=== PATIENT | female | born 1990 | race Asian ===

== ENCOUNTER 2022-04-16 13:59 | Outpatient (CLI) | payer BC, SELFPAY ==
[2022-04-16 15:22] LABS: Amphetamine Screen Urine Negative (Negative); Barbiturate Screen Urine Negative (Negative); Benzodiazepines Screen Urine Negative (Negative); Cannabinoid Screen Urine Negative (Negative); Cocaine Screen Urine Negative (Negative); Methadone Screen Urine Negative (Negative); Methamphetamines Screen Urine Negative (Negative); Opiate Screen Urine Negative (Negative); Oxycodone Screen Urine Negative (Negative); Phencyclidine Screen Urine Negative (Negative); Tricyclic Antidepressant Urine Negative (Negative)
== END 2022-04-16 14:00 | disposition home or self-care (01) ==
LOC: NFLDREF 14:09
PROVIDERS: Visit Provider Advanced Practice Midwife
DX: O09.30 Supervision of pregnancy with insufficient antenatal care, unspecified trimester (principal); Z3A.20 20 weeks gestation of pregnancy
CPT/HCPCS: 76805; 80306

== ENCOUNTER 2022-06-02 11:39 | Outpatient (CLI) | payer BC, SELFPAY ==
--- OUTSIDE RECORDS SUMMARY | 2022-06-02 11:42 | XMS_ITS | Clinical Summary ---
:1990 Author Organization [facility] [place] [address] Care Team Providers Name Role Phone Sophie Salvador MD Primary Care Provider Allergies No known active allergies Medications Medication Sig Dispensed Refills Start Date End Date Status FLUoxetine (PROZAC) Take 1 Capsule (10 30 Capsule 2 04/03/2021 Active 10 mg mg) by mouth every capsuleIndications: morning. Depression with anxiety Active Problems Problem Noted Date ADD (attention deficit disorder) 12/13/2012 Contraception 05/08/2012 Resolved Problems Problem Noted Date Resolved Date IUD (intrauterine device) in place 03/01/201402/13 Overview: Placed April 2013. Supervision of normal first 07/26/2011 Overview: FOB: [facility] Itchy skin at 23 weeks: bile salts della l, itching resolved GBS negative. Immunizations Name Administration Dates Next Due COVID-19 vaccine ([employer] 11/04/2020, 10/14/2020 30mcg/0.3mL) PF, MDV DTP 08/15/1997, 02/25/1993, 1992, 1992 HIB PRP-OMP (PedvaxHIB) 08/15/1997, 02/25/1993, 1992, 1992 Hepatitis B (Peds) 04/24/1993, 1992, 1992 Human Papilloma Virus Vaccine 08/18/2016, 04/23/2014, 2012, 07/30/2010 Human Papilloma Virus Vaccine, 08/18/2016 Unspecified Influenza A (H1N1), Inactivated 09/18/2009 Influenza Virus, Unspecified 08/20/2016 Influenza, IIV3 (Age 6-35 mos) 07/26/2011 Influenza, IIV3 (Age >=3 years) 06/30/2012, 07/26/2011, 07/04 Influenza, IIV4 08/20/2020, 07/23/2019, 07/13/2018, 08/20/2016 MMR 06/12/2004, 08/15/1997 Meningococcal Vaccine (Menactra) 07/30/2010 Meningococcal Vaccine (Menveo) 07/30/2010 Oral Polio Vaccine 08/15/1997, 1992, 1992 Td (Age >=7 Years) 06/12/2004 Tdap 09/13/2018, 01/17/2012 Varicella Vaccine 12/09/2008, 06/12/2004 Family History Medical History Relation Name Comments Good Health Brother 2 Good Health Father Cancer Mother stomach Relation Name Status Comments Brother 1 Alive Brother 2 Father Alive Mother 2006 Son Alive Social History Tobacco Use Types Packs/Day Years Used Date Never Smoker Smokeless Tobacco: Never Used Tobacco Cessation: Counseling Given: Yes Alcohol Use Standard Drinks/Week Comments No 0 (1 standard drink = 0.6 oz pure alcoho l) Alcohol Habits Answer Date Recorded How often do you have a drink containing alcohol? Not asked How many drinks containing alcohol do you have on a typical Not asked day when you are drinking? How often do you have six or more drinks on one occasion? 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 Respiratory Rate 16 04/01/2021 9:29 AM CDT Oxygen Saturation 99% 03/15/2019 9:31 AM CDT Inhaled Oxygen Concentration - - Weight 75.6 kg (166 lb 9.6 oz) 04/01/2021 9:29 AM CDT Height 161.3 cm (5' 3.5) 04/01/2021 9:29 AM CDT Body Mass Index 29.05 04/01/2021 9:29 AM CDT Plan of Treatment Health Maintenance Due Date Last Done Comments Hepatitis C screening for age 1007/15/2010 18-79 COVID-19 vaccine series (3 - 04/03/2021 11/04/2020, 021 Booster for Pfizer series) BMI (ht and wt on same day) for 04/01/2022 04/01/2021, 03/03 age 18+ Depression screening for age 12+ 04/03/2022 04/03/2021, Influenza for age 9-49 06/03/2022 08/20/2020, 07/23/2019, 07/13/2018, Additional history exists Pap test for age 21-65 01/15/2025 01/15/2022, 01/15/2022, 08/18/2018 ([facility] Tetanus booster 09/13/2028 09/13/2018, 01/17/2012, 06/12/2004 Tdap Completed 09/13/2018, 01/17/2012 Results Not on filefrom Last 3 Months Insurance Payer Benefit Plan / Subscriber ID Effective Dates Phone Addre ss Type Group [employer] [place] [employer] [id number] 2020-Present [address] [address] [place] [address] Laya Mckeon Motor Vehicle Self 1990 [id number] (Home) [place] [id number] 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
[2022-06-04 19:52] LABS: Rapid Plasma Reagin (RPR) Non Reactive (Non Reactive)
== END 2022-06-02 11:40 | disposition home or self-care (01) ==
LOC: NFLDREF 11:40
PROVIDERS: Visit Provider Registered Nurse
DX: Z34.80 Encounter for supervision of other normal pregnancy, unspecified trimester (principal)
CPT/HCPCS: 86592

== ENCOUNTER 2022-06-29 17:38 | Outpatient (CLI) | payer BC, SELFPAY ==
--- OUTSIDE RECORDS SUMMARY | 2022-06-29 17:40 | XMS_ITS | Clinical Summary ---
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 Respiratory Rate 16 04/01/2021 9:29 AM CDT [...] 01/15/2025 01/15/2022, 01/15/2022, 08/18/2018 ([facility] Tetanus booster 09/13/2028 09/13/2018, 01/17/2012, 06/12/2004 Tdap Completed 09/13/2018, 01/17/2012 Results Not on filefrom Last 3 Months Insurance Payer Benefit Plan / Subscriber ID Effective Dates Phone Addre ss Type Group [employer] [place] [employer]AGE [id number] 2020-Present [address] [address] [place] [address] Laya Mckeon Motor Vehicle Self 1990 [id number] (Home) [place] [id number] 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
[2022-06-29 17:46] VITALS: PULSE 96; O2SAT 98
[2022-06-29 17:51] VITALS: PULSE 95; O2SAT 98
[2022-06-29 17:54] VITALS: BP 119/74; PULSE 91
[2022-06-29 17:55] VITALS: BP 119/74; PULSE 95; RESP 14; TEMP 36.7; O2SAT 98
--- NOTE | 2022-06-29 18:33 | PC.OBNST ---
NST Note NST Note Start: 06/29/22 17:46 Freq: ONCE Status: Active Protocol: Document 06/29/22 18:21 LP (Rec: 06/29/22 18:33 LP [id number]) NST Note 4 Para (# of births) 2 EDC 08/23/22 Gestational Age In Weeks & Days 32 Weeks & 1 Days Patient Presented with Complaint(s) of Decreased movement Reactive Yes Appropriate for Gestational Age Yes CHARLES Wu, RN Date 06/29/22 Reactive Yes Appropriate for Gestational Age Yes CHARLES Holder RN Date 06/29/22 OB NST charge Yes Complete NST Note via Write Note Yes The provider's electronic signature indicates the NST is reactive/appropriate for gestational age. *Note to provider: If an addendum is required, open the patient's chart and click on the note under the Nurse/Allied Health tab.
== END 2022-06-29 18:25 | disposition home or self-care (01) ==
LOC: OB OUT 17:39 → OB 17:43
PROVIDERS: Visit Provider Obstetrics & Gynecology
DX: Z34.83 Encounter for supervision of other normal pregnancy, third trimester (principal); Z3A.32 32 weeks gestation of pregnancy
CPT/HCPCS: 59025; 99213

== ENCOUNTER 2022-08-11 11:15 | Outpatient (CLI) | payer BC, SELFPAY ==
--- OUTSIDE RECORDS SUMMARY | 2022-08-11 11:17 | XMS_ITS | Clinical Summary ---
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 Rate 16 04/01/2021 9:29 AM CDT [...] 1007/15/2010 18-79 COVID-19 vaccine series (3 - 12/30/2020 11/04/2020, 021 Booster for Pfizer series) BMI (ht and wt on same day) for 04/01/2022 04/01/2021, 03/03 age 18+ Depression screening for age 12+ 04/03/2022 04/03/2021, Influenza for age 9-49 06/03/2022 08/20/2020, 07/23/2019, 07/13/2018, Additional history exists Pap test for age 21-65 01/15/2025 01/15/2022, 01/15/2022, 08/18/2018 (Completed outside of [facility]) Tetanus booster 09/13/2028 09/13/2018, 01/17/2012, 06/12/2004 Tdap Completed 09/13/2018, 01/17/2012 Results Not on filefrom Last 3 Months Insurance Payer Benefit Plan / Subscriber ID Effective Dates Phone Addre ss Type Group [employer] [place] [employer]AGE [id number] 2020-Present [address] [address] [place] [address] Laya Mckeon Motor Vehicle Self 1990 [address] (Home) [place] [id number] 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
[2022-08-12 11:43] LABS: Strep B DNA Probe NEGATIVE (Negative)
[2022-08-14 03:06] LABS: Strep B Pen/Amox Allergy No
== END 2022-08-11 11:16 | disposition home or self-care (01) ==
LOC: NFLDREF 11:15
PROVIDERS: Visit Provider Obstetrics & Gynecology
DX: Z34.83 Encounter for supervision of other normal pregnancy, third trimester (principal); Z3A.38 38 weeks gestation of pregnancy
CPT/HCPCS: 87081; 87653

== ENCOUNTER 2022-08-23 09:45 | Inpatient (IN) | payer BC, SELFPAY ==
[2022-08-23] VITALS (7 sets, daily range): BP systolic 115–122; BP diastolic 72–80; PULSE 85–102; TEMP 36.5–36.6; O2SAT 99–100; BMI 34.0
[2022-08-23 10:57] LABS: Basophils Absolute Auto 0.05 K/uL (0.00-0.30); Basophils Percent Auto 0.5 % (0.0-3.0); Eosinophils Absolute Auto 0.07 K/uL (0.00-0.50); Eosinophils Percent Auto 0.6 % (0.0-7.0); Hematocrit 33.4 % (33.0-51.0); Hemoglobin* 10.7 gm/dL (12.0-16.0); Immature Granulocytes Abs Auto 0.06 K/uL (0.00-0.30); Immature Granulocytes Pct Auto 0.6 %; Lymphocytes Percent Auto 18.5 % (20-44); Mean Corpuscular HGB Conc 32 gm/dL (32-36); Mean Corpuscular Hemoglobin 23 pg (26-34); Mean Corpuscular Volume 71 fL (80-100); Monocytes Percent Auto 5.5 % (0.0-11.0); Neutrophils Percent Auto 74.3 % (42.0-72.0); Platelet Count* 279 K/uL (140-440); RDW Coefficient of Variation % 15.3 % (11.5-15.5); Red Blood Count 4.72 m/uL (4.00-5.20)
[2022-08-23 11:00] LABS: Slide Review Reflex No
[2022-08-23 11:02] LABS: Amphetamine Screen Urine Negative (Negative); Barbiturate Screen Urine Negative (Negative); Benzodiazepines Screen Urine Negative (Negative); Cannabinoid Screen Urine Negative (Negative); Cocaine Screen Urine Negative (Negative); Methadone Screen Urine Negative (Negative); Methamphetamines Screen Urine Negative (Negative); Opiate Screen Urine Negative (Negative); Oxycodone Screen Urine Negative (Negative); Phencyclidine Screen Urine Negative (Negative); Tricyclic Antidepressant Urine Negative (Negative)
[2022-08-23 11:50] LABS: SARS PCR* Negative SARS-CoV-2 (Negative)
--- NOTE | 2022-08-23 14:35 | W.PM.LDBA ---
Subjective History of Present Illness Time Seen by Provider: 11:00 Date Seen: 08/23/22 Narrative: Patient is being admitted to Labor and Delivery for elective induction of labor. She is a 32 year old at weeks gestation. Her full history and physical was dictated by Dr. Lazaro on 08/11/2022. Please see this for details. Patient today states to be doing well without any specific concerns or complaints, ready to start induction of labor, she was originally scheduled to come in last night for cervical ripening but due to staffing issues and the L&D being very busy she was asked to come in today in the morning. Comments: H&P done 08/11/[address] Lazaro. 1. Insufficient care, NOB then did not return until >20 weeks UDS 04/19 neg COVID: vaccinated x2 Flu: 07/2021, does want it this year TDAP:06/16/22 OB - H&P: Exam Physical Exam: Vital signs: Temp Pulse BP Pulse Ox 97.7 F 97 120/80 99 08/23/22 10:07 08/23/22 10:06 08/23/22 10:06 08/23/22 10:07 Narrative: VITAL SIGNS: As noted above. GENERAL APPEARANCE: Alert, cooperative female in no acute distress. MOOD & AFFECT: Normal. ABDOMEN: Gravid, nontender Cervix: 1 cm/50%/vertex/-3 EXTREMITIES: Nonedematous. Well perfused. Nontender. NST: 140 beats per minute/positive accelerations/negative deceleration/moderate variability/irregular uterine contractions OB - Problem Based A/P Additional Plan (1) : Status: Acute Plan Elective induction of labor at term: -Cook catheter placed, will plan to start IV oxytocin at around 3:00 p.m. per protocol GBS negative: No need for antibiotic prophylaxis Pain management: Candidate for analgesia of her choice Delivery/Labor/Induction Plan Plan: induction Induction method: Intracervical balloon catheter
[2022-08-23] MEDS: LACTATED RINGERS 1000 ML 1,000 ML 125 ML IV ×2 (15:32→22:52)
[2022-08-23] MEDS: OXYTOCIN 30 unit/500 ML in NS 30 UNIT/500 ML BAG IVPB (15:33)
[2022-08-23 21:42] LABS: Buprenorphine Screen Urine Negative (Negative)
[2022-08-24] VITALS (78 sets, daily range): BP systolic 83–143; BP diastolic 49–82; PULSE 71–108; RESP 16; TEMP 36.4–37; O2SAT 82–100
[2022-08-24] MEDS: ROPIVACAINE 0.2% 100 ml 100 ML 12 MG EPIDURAL (00:25)
[2022-08-24] MEDS: LIDOCAINE 2% (PF) 5 ML VIAL EPIDURAL (00:26)
[2022-08-24] MEDS: LACTATED RINGERS 1000 ML 1,000 ML 999 ML IV ×3 (00:26→02:37)
--- NOTE | 2022-08-24 00:32 | PM.ANBPRC ---
[facility] Medical History (Updated 08/23/22 @ 14:41 by Ilsa Snider MD) Normal delivery at term (11/29/18) Family History Mother Stomach cancer Social History Smoking Status: Never smoker Meds Home Medications and Allergies Home Medications Medication Instructions Recorded Confirmed Type cholecalciferol (vitamin D3) 25 1,000 unit PO DAILY 04/16/22 08/23/22 History mcg (1,000 unit) tablet omega 5-bqz-oke-fish oil 300 1 cap PO QDAY 04/16/22 08/23/22 History mg-1,000 mg capsule (Fish Oil) prenat.vits,wm,zyt-iyvl-lvwac 1 tab PO QDAY 04/16/22 08/23/22 History Allergies Allergy/AdvReac Type Severity Reaction Status Date / Time No Known Allergies Allergy Verified 08/23/22 21:30 Results Labs Labs: Laboratory Results - last 24 hr 08/23/22 08/23/22 08/23/22 10:10 10:10 10:41 WBC 10.80 RBC 4.72 Hgb 10.7 L Hct 33.4 MCV 71 L MCH 23 L MCHC 32 RDW Coeff of Link 15.3 Plt Count 279 Neut % (Auto) 74.3 H Lymph % (Auto) 18.5 L [place] % (Auto) 5.5 Eos % (Auto) 0.6 Baso % (Auto) 0.5 Neut # (Auto) 8.00 H Lymph # (Auto) 2.00 Freestone # (Auto) 0.60 Eos # (Auto) 0.07 Baso # (Auto) 0.05 Abs Immat Gran (auto) 0.06 Imm/Tot Granulo (auto) 0.6 Urine Opiates Screen Negative Ur Buprenorphine Scrn Negative Ur Oxycodone Screen Negative Urine Methadone Screen Negative Ur Propoxyphene Screen Negative Ur Barbiturates Screen Negative U Tricyclic Antidepress Negative Ur Phencyclidine Scrn Negative Ur Amphetamines Screen Negative U Methamphetamines Scrn Negative U Benzodiazepines Scrn Negative Urine Cocaine Screen Negative U Marijuana (THC) Screen Negative SARS-CoV-2 (PCR) Negative SARS-CoV-2 Blood Type Antibody Screen 08/23/22 10:41 WBC RBC Hgb Hct MCV MCH MCHC RDW Coeff of Link Plt Count Neut % (Auto) Lymph % (Auto) Freestone % (Auto) Eos % (Auto) Baso % (Auto) Neut # (Auto) Lymph # (Auto) Freestone # (Auto) Eos # (Auto) Baso # (Auto) Abs Immat Gran (auto) Imm/Tot Granulo (auto) Urine Opiates Screen Ur Buprenorphine Scrn Ur Oxycodone Screen Urine Methadone Screen Ur Propoxyphene Screen Ur Barbiturates Screen U Tricyclic Antidepress Ur Phencyclidine Scrn Ur Amphetamines Screen U Methamphetamines Scrn U Benzodiazepines Scrn Urine Cocaine Screen U Marijuana (THC) Screen SARS-CoV-2 (PCR) Blood Type B Positive Antibody Screen NEGATIVE Vital Signs Vital Signs: Last Vital Signs Temp 98 F 08/23/22 22:49 Pulse 102 H 08/24/22 00:29 BP 102/52 L 08/24/22 00:31 Pulse Ox 99 08/24/22 00:20 Weight: 90.083 kg Height: 162.56 cm Anesthesia Procedures Epidural Insertion Patient Location: OB Start Time: 23:55 Stop Time: 00:35 Start Date: 08/23/22 Stop Date: 08/24/22 Reason for Block: primary anesthetic Patient Position: sitting Performed By: Harlan López Preanesthetic Checklist: IV checked, risks and benefits discussed, surgical consent, monitors and equipment checked, pre-op evaluation, timeout performed and anesthesia consent Prep: chlorhexidine gluconate Monitoring: blood pressure monitoring, physician asst, continuous pulse oximetry and heart rate Approach: midline Vertebral Space: lumbar (1-5) Needle Type: Tuohy needle Injection Technique: continuous catheter (catheter) Needle gauge: 17 Needle Length (cm): 10 cm Needle Insertion Depth (cm): 5 Catheter Gauge: 19 Catheter Type: multi-orifice Catheter at skin depth (cm): 10 Test Dose Result: negative and lidocaine 1.5% with epinephrine 1 to 200,000
[2022-08-24] MEDS: PHENYLEPHRINE 100 MCG/ML SYRINGE IVP ×3 (00:36→01:24)
[2022-08-24] MEDS: ePHEDrine sulfate 5 MG/ML inj 10 MG IVP (01:32)
--- NOTE | 2022-08-24 04:49 | PM.OBPRCVD ---
Procedure Delivery date: 08/24/22 Procedure Done: Global Events: Labor Induction Intrapartal Events: Labor Induction Induction method: Intracervical balloon catheter (Followed by IV oxytocin infusion) Delivery monitor: external FHT Route of delivery: Episiotomy description: None Laceration description: Perineal - 1st Degree Delivery repair: Vicryl Estimated blood loss (mL): 50 Anesthesia type: Epidural Disposition: floor Complications: None Narrative: The patient is a 32 year-old G 4P 3013 admitted on 08/23/2022 at 40 Weeks, 0 Days gestation for elective induction of labor.? Cervical exam on admission was 1 cm/50 % effaced/-3 station with membranes intact in vertex presentation.? Contractions were every irregular minutes.? heart rate demonstrated baseline 140 bpm with moderate variability, positive accelerations, negative decelerations; a category 1 tracing.? SROM occurred at 0256 with clear fluid. ? Labor Analgesia:? Epidural ? Pitocin:? Yes ? Labor onset:? 2319 ? Complete:? 0354 ? Pushing:? 0359 ? heart tones during second stage were category 1. ? At 0418 a viable female infant delivered in vertex SAMUEL presentation over intact perineum via containing vaginal delivery.? was placed on maternal abdomen.? Cord was clamped and cut after a 30-60 second delay.? Nose and mouth were bulb suctioned.? Infant weight pending.? 8 at 1 minute and 8 at 5 minutes.? Shoulder dystocia: No.? Nuchal cord: No. ? Placenta delivered spontaneously and complete at 0428 with a 3 vessel cord. ? Mother and were stable after delivery. ? Lacerations:? 1st degree perineal, repaired with Vicryl 4-0. ? Blood loss: 50 mL. Blood loss measurement type: QBL ? Sponge and needles counts are correct. Infant Gender: Female presentation: vertex Placental Delivery Description: Spontaneous Cord Description: 3 Vessels
[2022-08-24] MEDS: DOCUSATE SODIUM 100 MG CAPSULE PO ×2 (07:19→20:40)
[2022-08-24] MEDS: IBUPROFEN 600 MG TABLET PO (07:19)
[2022-08-24] MEDS: LANOLIN CREAM 1 APPLIC TOPICAL (12:38)
[2022-08-24] MEDS: ACETAMINOPHEN 500 MG TABLET 1000 MG PO (16:42)
[2022-08-25] MEDS: IBUPROFEN 600 MG TABLET PO (01:22)
[2022-08-25] MEDS: ACETAMINOPHEN 500 MG TABLET 1000 MG PO (04:43)
[2022-08-25 04:57] VITALS: BP 121/81; PULSE 75; RESP 16; TEMP 37; O2SAT 97
[2022-08-25 06:55] LABS: Hemoglobin* 9.6 gm/dL (12.0-16.0)
--- NOTE | 2022-08-25 07:44 | P.DS_ITS ---
DS: Providers Provider Date Seen: 08/25/22 Date of admission: 08/23/22 09:45 Primary care physician: Not a Local Provider Admitting Clinician: Gloria Whitehead MD Attending Physician on discharge: Irasema [place] CNM Date of Discharge: 08/25/22 DS: Diagnosis Discharge Diagnosis (1) due to : Status: Inactive (2) Normal vaginal delivery: Status: Acute Exam Const: Vital Signs, click to edit/add: Vital Signs - 24 hr 08/24/22 08:32 08/24/22 12:39 08/24/22 15:35 Temperature 98.6 F 98 F 98.4 F Pulse Rate [Blood Pressure Cuff] 82 90 90 Respiratory Rate 16 16 16 Blood Pressure [Le ft Arm] 111/74 112/68 111/74 Pulse Oximetry 97 97 96 Oxygen Delivery Me thod Room Air Room Air Room Air 08/24/22 20:30 08/24/22 23:20 08/25/22 04:57 Temperature 98.1 F 97.9 F 98.6 F Pulse Rate [Blood Pressure Cuff] 90 95 75 Respiratory Rate 16 16 16 Blood Pressure [Le ft Arm] 111/71 125/79 121/81 Pulse Oximetry 96 96 97 Oxygen Delivery Me thod Room Air Room Air Room Air Documenting provider has reviewed patient's vital signs: yes Common normals: no apparent distress, average body habitus, oriented x3, no limitations, healthy appearing, alert and well nourished HENMT: Common normals: hearing grossly normal bilaterally Face and sinus: normal facial exam Eye: General eye: normal appearance of both eyes Neck & C-Spine: Common normals: full ROM, supple and no JVD Resp: Common normals: normal respiratory effort, no retractions, no use of accessory muscles and clear to auscultation bilaterally Auscultation: clear to auscultation bilaterally Cardio: Common normals: no JVD, regular rate, regular rhythm, S1 normal heart sound, S2 normal heart sound, no gallops, no clicks, no murmurs and no rub Rate: regular rate Rhythm: regular rhythm Heart sounds: S1 normal and S2 normal GI: Common normals: soft to palpation and non-tender Palpation: soft : Common normals: appearance of the vagina normal OB/external & speculum: Yes external exam normal Uterus: U/2 Lochia: small Extremity: Common normals: full ROM Neuro: Common normals: oriented x3 Sensorium/orientation: alert Psych: Common normals: mental status grossly normal OB - DS: Summary Hospital Course Hospital Course: Patient is a 32year old, G 4 now P 3? admitted on 08/23/22 at 39 Weeks, 0 Days gestation for elective IOL with Yoo balloon and IV pitocin.? She had an uncomplicated vaginal delivery.? She delivered a viable female infant.? She is breast feeding and reports things are well.? the patient has done well.? Her pain is well controlled with current medications.? She has no new complaints.? Vitals have been stable. She has remained afebrile. She is voiding without difficulty. She is passing gas and has not had a bowel movement. She is ambulating and denies any dizziness. Her hemoglobin is below 10 so PO iron was started and recomended upon discharge. She is planning mini pill for control, but is also considering Nexplanon.? Peripartum Data delivery method: Vaginal Laceration description: Perineal - 1st Degree Episiotomy description: None complications: none [place] Gender: Female Infant Discharge Plan: Home Status at Discharge Functional status at discharge: independent ambulation Overall status at discharge: patient is progressing back to baseline Time Spent with Patient Time attestation: Total time spent providing and/or coordinating discharge services: Discharge Plan Discharge Disposition: Home, Self-Care Date of Admission: 08/23/22 09:45 Attending Provider on Discharge: Irasema [place] Primary Care Provider: Provider,Not a Local Condition: Stable Anticipated Discharge Date/Time: 08/25/22 10:00 Discharge Medications: New docusate sodium 100 mg Capsule 100 mg PO BID Qty: 90 0RF Rx Instructions: Take 1-2 tablets daily as needed for constipation. ferrous sulfate 325 mg (65 mg iron) Tablet 325 mg PO DAILYWM Qty: 90 0RF ibuprofen 600 mg Tablet 600 mg PO Q6H PRNQty: 60 0RF Continued omega 2-caf-qqd-fish oil [Fish Oil] 300-1,000 mg capsule 1 cap PO QDAY cholecalciferol (vitamin D3) 25 mcg (1,000 unit) tablet 1,000 unit PO DAILY prenat.vits,wm,mmn-kaiy-rnfms Tablet 1 tab PO QDAY Discharge Orders: Discharge Order (Routine); Ordered 08/25/22 Ordered By: Irasema [place] Additional Instructions: Discharge instructions were reviewed with the patient including signs and symptoms of infection and home going medications.?? ? Do not drive while taking narcotic pain meds.? Off Work or School for 6 weeks.? ?? Symptoms to report to doctor:? -Bleeding that saturates more than one pad per hour? -Passing clots larger than the size of a golf ball? -Pain not relieved by prescribed medication? -Fever above 100.4 degrees Fahrenheit? -A foul vaginal odor? -Difficulty in emotions, mood and functions? -Thoughts of hurting yourself and/or ? -Painful, reddened area in your breast? -Any drainage, redness or tenderness in your IV/epidural site? -Severe headache that doesn't improve after taking medications? -Changes in vision, including temporary loss of vision, blurred vision, and/or light sensitivity? -Upper abdominal pain (usually under ribs on the right side)? -Decrease in urination or painful, frequent urinating? -Chest pain? -Shortness of breath? -Tenderness or pain with redness and/swelling in the calf(s) of your leg? ?? Follow Up in clinic in 2 and 6 weeks.? ?? consultation services are available to all mothers and babies for the first year after delivery.? To make an appointment, please call [phone].? Activity Level: No Restrictions and Activity as Tolerated Discharge Diet: Regular Follow Up Appointments: [facility] [Provider Group] Provider,Not a Local [Primary Care Provider] - Forms: [employer] Info Instructions
[2022-08-25 08:36] VITALS: BP 110/72; PULSE 67; RESP 16; TEMP 36.8; O2SAT 98
[2022-08-25] MEDS: DOCUSATE SODIUM 100 MG CAPSULE PO (12:56)
== END 2022-08-25 12:30 | disposition home or self-care (01) | DRG 560 ==
PROVIDERS: Obstetrics & Gynecology; Admitting Provider Obstetrics & Gynecology; Visit Provider Obstetrics & Gynecology
DX: O70.0 First degree perineal laceration during delivery (principal); Z3A.40 40 weeks gestation of pregnancy; Z37.0 Single live birth
CPT/HCPCS: 01967; 36415; 59200; 80306; 85018; 85025; 86850; 86900; 86901; 87635; A9270; J2370; J2795; J7120

== ENCOUNTER 2023-08-30 12:21 | Outpatient (CLI) | payer BC, SELFPAY | END 2023-08-30 12:22 | disposition home or self-care (01) | PROVIDERS: Visit Provider Registered Nurse | DX: Z01.419 Encounter for gynecological examination (general) (routine) without abnormal findings (principal); R53.83 Other fatigue; R63.5 Abnormal weight gain; Z13.1 Encounter for screening for diabetes mellitus; Z13.6 Encounter for screening for cardiovascular disorders | CPT/HCPCS: 80061; 82306; 84443 ==